=== PATIENT | female | born 1975 | race African-American/Black ===

== ENCOUNTER 2017-05-26 22:00 | Inpatient (IN) | payer MEDICARE, OTHER ==
[~2017-05-26] VITALS: Ht 162.6 cm; Wt 74.8 kg
--- NOTE | ~2017-05-26 | PA ---
Unit #: [id number] #: [id number] Patient: RUTH OVIEDO [id number] [facility] [address] [place] [address] [id number] I MR#: [id number] NAME: RUTH OVIEDO ROOM: P252 Age: 42 Sex: F Admission Date: 05/27/2017 : 1975 Date of Assessment: Attending Physician: Niranjan Chaidez M.D. Admitting Physician: Niranjan Chaidez M.D. Primary Care Physician: Karon Whitehead M.D. PSYCHIATRIC ASSESSMENT DATE OF SERVICE 05/28/2017. IDENTIFYING DATA Ms. Oviedo is a 42-year-old single disabled female, who is a resident of [place], [place], and was self-referred to the hospital and was accompanied by her fiance. CHIEF COMPLAINT "I'm fighting battles with my family." HISTORY OF PRESENT ILLNESS Ms. Oviedo is a 42-year-old female, who was brought to the hospital stating that she has been struggling with depression and stating that she is tired and that she is fighting barlow with her family according to her and today was overwhelming and she just wanted to take all of her pills and to end it and that she is tired and there is nothing in her life and "I've had breast cancer, I had it all." The patient does report increasing depression, anxiety, irritability, feelings of hopelessness and helplessness, and suicidal ideation and was seen to be danger to self and therefore, recommendation for inpatient level of care for safety and stabilization was made and the patient was stepped up to the inpatient unit. SUBSTANCE ABUSE HISTORY The patient denies any history of alcohol or drug abuse. PAST PSYCHIATRIC HISTORY The patient has not had any prior inpatient psychiatric treatment. Review of the medical records indicate that currently she is on lithium and Fetzima and Prozac and apparently has been getting those medications from her primary care physician. PAST MEDICAL HISTORY The patient's medical history is significant for history of breast cancer. ALLERGIES No known medication allergies. PERSONAL AND SOCIAL HISTORY A 42-year-old female, who reports that she is engaged and that she lives at home with her fiance and has fairly decent social support system. Unit #: [id number] #: [id number] Patient: RUTH OVIEDO MENTAL STATUS EXAMINATION Young female who was casually dressed with fair personal hygiene, appears to be in no acute distress or discomfort. She was awake and alert with intact orientation. Her mood was anxious with a congruent affect. Her speech was slow and restricted in content. Her thought processes were disorganized with some looseness of associations and flight of ideas. Her insight and judgment remain significantly impaired. DIAGNOSTIC IMPRESSION Psychiatric: Major depressive disorder, recurrent, moderate, without psychotic features. Medical: History of breast cancer. Stressors: Moderate psychosocial stressors. TREATMENT PLAN 1. The patient has presented with history of mood disorder, and has been decompensating and will need inpatient hospitalization for safety and stabilization. We will start her back on her home medications. We will adjust the medications and monitor response. 2. Supportive therapy was provided to the patient. 3. Safe, structured, and nourishing environment will be provided. ESTIMATED LENGTH OF STAY 5 to 7 days. ABILITY TO HELP SELF Limited. WILLINGNESS TO HELP SELF The patient appears to be willing to help self. STRENGTHS 1. Communicative. 2. Cooperative. PROBLEMS 1. Chronic dysphoric symptoms. 2. Poor social support system. DISCHARGE CRITERIA This will be contingent upon the patient's ability to show resolution of her depression and anxiety and her ability to stay safe to herself, particularly after discharge from the hospital. Dictated by... Niranjan Chaidez M.D. MEL/jovon TD: 05/29/2017 00:18 JOB #: [id number] Unit #: [id number] #: [id number] Patient: RUTH OVIEDO PSYCHIATRIC ASSESSMENT Page 1 of 1 X Niranjan Chaidez MD X PSYCHIATRIC ASSESSMENT
--- NOTE | ~2017-05-26 | PN ---
Unit #: [id number] #: [id number] Patient: RUTH POPE [id number] [facility] [address] [place] [address] [id number] I MR#: [id number] NAME: RUTH POPE ROOM: [facility] Age: 42 Sex: F Admission Date: 05/27/2017 : 1975 Attending Physician: Niranjan Chaidez M.D. Admitting Physician: Niranjan Chaidez M.D. Primary Care Physician: Aurelio Munoz PROGRESS NOTES DATE OF SERVICE 05/31/2017 DISCUSSION Ms. Pope is a 42-year-old female who was seen today. Chart was reviewed and case was discussed with the staff. She has been doing fairly well and has been reporting improvement in depression and anxiety and has been cooperative with the treatment recommendations as she has been taking the medications and tolerating them fairly well with no reported side effects. MENTAL STATUS EXAMINATION Middle-aged female who is casually dressed with fair personal hygiene, appears to be in no acute distress or discomfort. She was awake and alert on interaction with intact orientation. Her mood is anxious with congruent affect. Her speech is slow and goal-directed. She denies any suicidal or homicidal ideations. Her insight and judgment remain slightly impaired. TREATMENT PLAN 1. We will continue her on her current medications and treatment protocol. We will monitor her response to the medications and make further adjustments as needed. 2. We will continue to follow up. Dictated by... Niranjan Chaidez M.D. IAA/bzg TD: 06/01/2017 07:55 JOB #: [id number] Unit #: [id number] #: [id number] Patient: RUTH POPE PROGRESS NOTES Page 1 of 1 X Niranjan Chaidez MD PROGRESS NOTE
--- NOTE | ~2017-05-26 | PN ---
Unit #: [id number] #: [id number] Patient: RUTH OVIEDO [id number] [facility] [address] [place] [address] [id number] I MR#: [id number] NAME: RUTH OVIEDO ROOM: P252 Age: 42 Sex: F Admission Date: 05/27/2017 : 1975 Attending Physician: Niranjan Chaidez M.D. Admitting Physician: Niranjan Chaidez M.D. Primary Care Physician: Aurelio Munoz PROGRESS NOTES DATE 05/30/2017 DISCUSSION Ms. Oviedo is a 42-year-old female who was seen today and chart was reviewed and case was discussed with the staff. She has been anxious, withdrawn though has been cooperative with treatment recommendations and has been showing improvement in her mood and functioning and has been taking medications and tolerating them fairly well. MENTAL STATUS EXAMINATION Middle-aged female who was casually dressed with fair personal hygiene, appears to be in no acute distress or discomfort. She was awake and alert on interaction with intact orientation. Her mood was anxious with congruent affect. She denies any suicidal or homicidal ideations. Her insight and judgement remains slightly impaired. TREATMENT PLAN 1. We will continue her on her current medications and treatment protocol. We will monitor her response to the medications and make further adjustments as needed. 2. We will continue to follow up. Dictated by... Aurelio Tripp/adelina TD: 05/31/2017 21:04 JOB #: [id number] Unit #: [id number] #: [id number] Patient: RUTH OVIEDO PROGRESS NOTES Page 1 of 1 X Niranjan Chaidez MD X PROGRESS NOTE
--- NOTE | ~2017-05-26 | HP ---
Unit #: [id number] #: [id number] Patient: MAGGIE POPE [id number] [place] [address] [id number] I MR#: [id number] NAME: MAGGIE POPE ROOM: P252 Age: 42 Sex: F Admission Date: 05/27/2017 : 1975 Attending Physician: Niranjan Chaidez M.D. Admitting Physician: Niarnjan Chaidez M.D. Primary Care Physician: Karon Whitehead M.D. HISTORY AND PHYSICAL HISTORY OF PRESENT ILLNESS Maggie is a 42-year-old female admitted on 05/27/[address] [place] [address] for depression and anxiety. PAST MEDICAL HISTORY 1. Breast cancer diagnosed in 2011. 2. Chronic hip pain. 3. Anxiety. 4. Current left port placement. PAST SURGICAL HISTORY 1. Left hip replacement. 2. Bilateral mastectomy. 3. Hysterectomy. 4. Right lumpectomy. 5. Left port placement. SOCIAL HISTORY Smokes 1 pack of cigarettes daily. No alcohol or illegal drug use. She is currently engaged and living with her fiance. FAMILY HISTORY Noncontributory. REVIEW OF SYSTEMS CONSTITUTIONAL: No fever or chills. HEENT: Denies any sore throat, ear pain or runny nose. CARDIOVASCULAR: Denies chest pain, irregular heart rhythm or palpitations. CHEST: Denies shortness of breath or cough. No hemoptysis. GASTROINTESTINAL: Denies nausea, vomiting, diarrhea or chronic constipation. ENDOCRINE: Denies history of increased thirst or urination. No recent significant weight loss or gain. GENITOURINARY: Denies dysuria, frequency, or hematuria. SKIN: Left subclavian port palpable. HEMATOLOGIC: Denies history of increased bleeding or bruising. MUSCULOSKELETAL: Denies any hot, swollen joints. No generalized muscle pain. NEUROLOGIC: Denies problems with vision or speech. No frequent, severe headaches. No numbness, tingling or weakness in any extremities. Denies loss of bladder or bowel control. CURRENT MEDICATIONS Unit #: [id number] #: [id number] Patient: MAGGIE POPE 1. Prozac. 2. [place]. 3. Naproxen. 4. Amlodipine. 5. Metoprolol. 6. Xanax. 7. Fetzima. 8. Neurontin. 9. [place]. 10. Prilosec. ALLERGIES No known drug allergies. PHYSICAL EXAMINATION GENERAL: Alert, oriented, no acute distress. VITAL SIGNS: Blood pressure 113/85, heart rate 83, temperature 98.0. HEIGHT: 5 feet 4. WEIGHT: 165 pounds. SKIN: Warm, dry. No rashes or lesions, track crane, cuts, etc. HEENT: Normocephalic. TMs not viewed. Oronasal passages clear. Conjunctivae clear. PERRLA. EOM is intact. NECK: No lymphadenopathy or thyromegaly. HEART: Regular rate and rhythm. No murmur, gallop, or rub. LUNGS: Clear to auscultation bilaterally. ABDOMEN: Soft, nontender without palpable masses or hepatosplenomegaly. : Not assessed. EXTREMITIES: No evidence of cyanosis, clubbing, or edema. Moves all extremities independently without obvious deficit. NEUROLOGICAL: Grossly within normal limits. Cranial Nerves: II: Visual linares are intact. III, IV AND : Extraocular movements are intact. Pupils are equal, round and reactive to light. V: Facial sensation is grossly normal. VII: Facial movements and expression are normal. VIII: Auditory acuity grossly intact. IX, X: Uvula is midline. Phonation is normal. XI: Patient shrugs shoulders and turns head normally. XII: Tongue protrudes in the midline. Sensory and Motor Function: Sensory and motor sensation is grossly normal. Motor: moves all extremities well. Coordination: Gait is normal. Deep Tendon Reflexes: Intact. IMPRESSION 1. Psychiatric admission. 2. History of breast cancer. 3. Chronic pain. 4. Anxiety. 5. Left port placement. RECOMMENDATIONS PSYCHIATRIC: Per psychiatrist. MEDICAL: No contraindication to participate in this facility's activities. MEDICAL PROGNOSIS Good. MEDICAL CONDITION Stable. Unit #: [id number] #: [id number] Patient: MAGGIE POPE Dictated by... Evelia Tinoco TD: 05/28/2017 13:35 JOB #: [id number] HISTORY AND PHYSICAL Page 1 of 1 X ANN WORTHINGTON APRN X HISTORY AND PHYSICAL
--- NOTE | ~2017-05-26 | PN ---
Unit #: [id number] #: [id number] Patient: RUTH OVIEDO [id number] [facility] [address] [place] [address] [id number] I MR#: [id number] NAME: RUTH OVIEDO ROOM: P252 Age: 42 Sex: F Admission Date: 05/27/2017 : 1975 Attending Physician: Niranjan Chaidez M.D. Admitting Physician: Niranjan Chaidez M.D. Primary Care Physician: Aurelio Munoz PROGRESS NOTES DATE OF SERVICE 05/29/2017 DISCUSSION Ms. Oviedo is a 42-year-old female who was seen today and chart was reviewed and case was discussed with the staff. The patient has been anxious, withdrawn and was somewhat agitated yesterday and was trying to leave against medical advice by has been able to calm herself down significantly and has been more cooperative with treatment recommendations. MENTAL STATUS EXAMINATION Middle-age female who was casually dressed with fair personal hygiene appears to be in no acute distress or discomfort. Patient was awake and alert with impaired attention and concentration. Her mood was anxious with congruent affect. She denies any suicidal or homicidal ideations. Her insight and judgement remains slightly impaired. TREATMENT PLAN 1. We will continue her on her current medications and treatment protocol. We will monitor her response to medication and make further adjustments as needed. 2. We will continue to follow up. Dictated by... Aurelio Tripp/adelina TD: 05/31/2017 02:34 JOB #: [id number] Unit #: [id number] #: [id number] Patient: RUTH OVIEDO PROGRESS NOTES Page 1 of 1 X Niranjan Chaidez MD X PROGRESS NOTE
--- NOTE | ~2017-05-26 | DS ---
Unit #: [id number] #: [id number] Patient: RUTH OVIEDO [id number] [facility] [address] [place] [address] [id number] I MR#: [id number] NAME: URTH OVIEDO ROOM: P252 Age: 42 Sex: F Admission Date: 05/27/2017 : 1975 Discharge Date: 06/01/2017 Attending Physician: Niranjan Chaidez M.D. Primary Care Physician: Karon Whitehead M.D. DISCHARGE SUMMARY IDENTIFYING DATA Ms. Oviedo is a 42-year-old female, who was self-referred to the hospital on a voluntary basis. DISCHARGE DIAGNOSES Psychiatric: Major depressive disorder, recurrent, moderate, without psychotic features and generalized anxiety disorder. Medical: History of breast cancer, status post double mastectomy; hypertension; and left hip replacement. Stressors: Mild psychosocial stressors. HISTORY OF PRESENT ILLNESS Please see initial psychiatric evaluation for details. PAST PSYCHIATRIC HISTORY Please see initial psychiatric evaluation for details. PAST MEDICAL HISTORY Please see initial psychiatric evaluation for details. HOSPITAL COURSE The [facility] and was oriented to the hospital environment. Routine p.r.n. medications were initiated, and she was started back on her home medications. However, she was seen to be over medicated and sedated, and review of the medical records indicate that she has been taking high dose of Xanax t.i.d. and as such Xanax was maintained, but was switched from routine to p.r.n. and she initially did not like and was educated about the addictive potential of the medication, particularly if taken on set schedule every day of the week and she was then willing to be more compatible with treatment recommendations and Wellbutrin was added into her Fetzima and Seroquel was also given as an augmenting agent. With those adjustment, the patient was able to show a therapeutic response to medication adjustment with improvement in depression and anxiety and was willing to continue treatment on an outpatient basis and as such, it was decided that she will be discharged home and will continue treatment on an outpatient basis. DISCHARGE MEDICATIONS Wellbutrin XL 150 mg in the morning for depression, Seroquel 50 mg at bedtime for depression, and Fetzima 120 mg in the morning for depression. DISCHARGE CONDITION Stable. Unit #: [id number] #: [id number] Patient: RUTH OVIEDO PROGNOSIS Fair. Dictated by... Aurelio Tripp/jovon TD: 06/01/2017 19:10 JOB #: [id number] DISCHARGE SUMMARY Page 1 of 1 X Niranjan Chaidez MD X DISCHARGE SUMMARY
[~2017-05-26 22:00] MED LIST: AMLODIPINE BESYL5 MG PO; ASPIR-TRIN325 MG PO; DIAZEPAM PO; FETZIMA1 EACH PO; GABAPENTIN600 MG PO; HYDROCODON-ACE1 EAC5 PO; MAGNESIUM400 MG PO; METOPROLOL SUCC25 MG PO; PERCOCET 10/3251 TAB PO; PRENATAL1 TA1 PO; PROZAC PO; RISPERDAL0.5 MG PO
[2017-05-28 11:30] LABS: URINE APPEARANCE CLEAR; URINE BILIRUBIN NEG (NEG); URINE BLOOD NEG (NEG); URINE COLOR YELLOW; URINE GLUCOSE NEG (NEG); URINE KETONE NEG (NEG); URINE LEUKOCYTE ESTERASE NEG (NEG); URINE NITRATE NEG (NEG); URINE PROTEIN NEG (NEG); URINE SPECIFIC GRAVITY 1.016 (1.003-1.035); URINE UROBILINOGEN 0.2 MG/DL (NEG)
[2017-05-28 12:30] LABS: AMPHETAMINE NEG (NEG); BARBITURATES NEG (NEG); BENZODIAZEPINES POS (NEG); COCAINE NEG (NEG); MARIJUANA NEG (NEG); OPIATES POS (NEG); TRICYCLIC ANTIDEPRESSANTS NEG (NEG); U METHADONE NEG (NEG)
[2017-05-29 15:21] LABS: BASOPHIL# 0.1 X10e3 (0-0.3); BASOPHIL% 0.8 % (0-2.5); EOSINOPHIL# 0.1 X10e3 (0-0.7); EOSINOPHIL% 0.9 % (0.0-7.0); HEMATOCRIT 37.8 % (35.0-45.0); HEMOGLOBIN 12.7 gm/dL (12.0-16.0); LYMPHOCYTE# 1.8 X10e3 (1.0-3.5); LYMPHOCYTE% 24.8 % (17.0-45.0); MEAN CELL VOLUME 98.7 FL (83-96); MEAN CORPUSCULAR HGB CONC 33.5 g/dL (30-36); MEAN PLATELET VOLUME 7.6 FL (6.5-11.5); MONOCYTE# 0.5 X10e3 (0-1.0); MONOCYTE% 6.8 % (3.0-12.0); NEUTROPHIL% 66.7 % (40-75); PLATELET COUNT 257 X10e3 (140-420); RED BLOOD COUNT 3.83 X10e (3.90-5.30); WHITE BLOOD COUNT 7.4 X10e3 (4.0-10.5)
[2017-05-29 15:26] LABS: DIFF IND NO
[2017-05-29 15:51] LABS: ALBUMIN SERUM 3.9 g/dL (3.5-5.0); BILIRUBIN,TOTAL 0.6 mg/dL (0.2-2.0); CALCIUM SERUM 9.6 mg/dL (8.4-10.2); GLOM FILT RATE Estimated 79.9 mL/min (>60); POTASSIUM 4.7 mmol/L (3.5-5.1); PROTEIN TOTAL SERUM 6.7 g/dL (6.0-8.3)
== END 2017-06-01 11:45 | disposition home or self-care (01) | DRG 885 ==
LOC: P2L 05-27 21:38
PROVIDERS: Psychiatry & Neurology Psychiatry
DX: F33.1 Major depressive disorder, recurrent, moderate (principal); I10 Essential (primary) hypertension; F41.1 Generalized anxiety disorder; Z85.3 Personal history of malignant neoplasm of breast; F17.210 Nicotine dependence, cigarettes, uncomplicated; Z96.642 Presence of left artificial hip joint
CPT/HCPCS: 80053; 80307; 81003; 85025